=== PATIENT | male | born 1965 | race Caucasian/White ===

== ENCOUNTER 2021-11-22 13:49 | Outpatient (CLI) | payer BC, SELFPAY ==
[2021-11-22 22:09] LABS: Chloride* 101 mmol/L (96-114)
[2021-11-22 22:10] LABS: Albumin* 4.6 g/dL (3.3-5.0); Potassium* 4.6 mmol/L (3.6-5.1); Sodium* 137 mmol/L (135-149)
[2021-11-22 22:12] LABS: Carbon Dioxide* 29 mmol/L (20-32); Cholesterol* 160 mg/dL (90-199); Creatinine* 0.9 mg/dL (0.5-1.5); Estimated Glomerular Filt Rate 100 ml/min; Total Protein* 7.4 g/dL (6.0-8.3)
[2021-11-22 22:13] LABS: Alanine Aminotransferase* 32 U/L (4-50); Alkaline Phosphatase* 76 U/L (40-150); Aspartate Amino Transferase* 32 U/L (12-35); Bilirubin Total* 1.2 mg/dL (0.1-1.5); Blood Urea Nitrogen* 16 mg/dL (7-30); Calcium* 9.6 mg/dL (8.4-10.6); Glucose* 109 mg/dL (60-115); HDL Cholesterol* 34 mg/dL (>=40); LDL Cholesterol Calculated 85 mg/dL (<100); Triglycerides* 207 mg/dL (40-149)
[2021-11-22 23:22] LABS: PSA Screen* 0.73 ng/mL (0.10-4.00)
== END 2021-11-22 13:50 | disposition home or self-care (01) ==
PROVIDERS: PCP Family Medicine; Visit Provider Family Medicine
DX: Z00.00 Encounter for general adult medical examination without abnormal findings (principal); E78.00 Pure hypercholesterolemia, unspecified; I10 Essential (primary) hypertension; R73.03 Prediabetes; Z12.5 Encounter for screening for malignant neoplasm of prostate
CPT/HCPCS: 80053; 80061; 84153

== ENCOUNTER 2023-01-23 15:53 | Outpatient (CLI) | payer BC, SELFPAY | END 2023-01-23 15:54 | disposition home or self-care (01) | LOC: NFLDREF 01-24 11:45 | PROVIDERS: PCP Family Medicine; Referring Provider Family Medicine; Visit Provider Family Medicine | DX: E78.00 Pure hypercholesterolemia, unspecified (principal); I10 Essential (primary) hypertension; R73.03 Prediabetes; Z12.5 Encounter for screening for malignant neoplasm of prostate | CPT/HCPCS: 80053; 80061; 84153 ==

== ENCOUNTER 2023-04-17 15:53 | Outpatient (CLI) | payer BC, SELFPAY | END 2023-04-17 15:54 | disposition home or self-care (01) | LOC: LKVREF 15:55 | PROVIDERS: PCP Family Medicine; Visit Provider Family Medicine | DX: R17 Unspecified jaundice (principal) | CPT/HCPCS: 80076 ==

== ENCOUNTER 2023-04-28 07:52 | Outpatient (CLI) | payer BC, SELFPAY ==
--- NOTE | 2023-04-28 09:01 | W.ANESCHARGE ---
Anesthesia Charges Start Date/Time Anesthesia Start Date: 04/28/23 Anesthesia Start Time: 08:39 Stop Date/Time Anesthesia Stop Date: 04/28/23 Anesthesia Stop Time: 08:59
--- NOTE | 2023-04-28 09:04 | W.ANESCHARGE ---
Anesthesia Charges Start Date/Time Anesthesia Start Date: 04/28/23 Anesthesia Start Time: 08:39 Stop Date/Time Anesthesia Stop Date: 04/28/23 Anesthesia Stop Time: 08:59
== END 2023-04-28 07:53 | disposition home or self-care (01) ==
LOC: OP CLINIC 07:52
PROVIDERS: PCP Family Medicine; Visit Provider Internal Medicine Gastroenterology
DX: Z86.010 Personal history of colon polyps (principal); K62.1 Rectal polyp; K57.30 Diverticulosis of large intestine without perforation or abscess without bleeding
CPT/HCPCS: 00811; 45385; 88305; J2704

== ENCOUNTER 2024-03-23 08:42 | Outpatient (CLI) | payer BC, SELFPAY | END 2024-03-23 08:43 | disposition home or self-care (01) | LOC: NFLDREF 03-24 01:56 | PROVIDERS: PCP Family Medicine; Referring Provider Family Medicine; Visit Provider Family Medicine | DX: E78.00 Pure hypercholesterolemia, unspecified (principal); I10 Essential (primary) hypertension; R73.03 Prediabetes; Z12.5 Encounter for screening for malignant neoplasm of prostate | CPT/HCPCS: 80053; 80061; G0103 ==

== ENCOUNTER 2024-12-16 08:17 | Outpatient (CLI) | payer BC, SELFPAY | END 2024-12-16 08:18 | disposition home or self-care (01) | LOC: LKVREF 08:21 | PROVIDERS: PCP Family Medicine; Visit Provider Family Medicine | DX: R53.83 Other fatigue (principal); R68.82 Decreased libido | CPT/HCPCS: 84270; 84402; 84403 ==